=== PATIENT | female | born 1945 | race Caucasian/White ===

== ENCOUNTER 2019-01-03 13:52 | Emergency (ER) | payer MEDICARE, OTHER ==
[~2019-01-03] VITALS: Ht 172.7 cm; Wt 90.0 kg
[2019-01-03] MEDS ORDERED: PROAIR HFA108 MCG/AC PO (15:15)
[2019-01-03] MEDS ORDERED: PREDNISONE50 MG PO (15:15)
[2019-01-03] MEDS ORDERED: DOXYCYC MONO100 M2 PO (15:15)
[2019-01-03] MEDS ORDERED: CHERATUSSIN PO (15:16)
[2019-01-03 15:23] VITALS: BP 180/92
== END 2019-01-03 15:23 | disposition home or self-care (01) ==
LOC: ED 13:52
DX: J40 Bronchitis, not specified as acute or chronic (principal); E11.9 Type 2 diabetes mellitus without complications; I10 Essential (primary) hypertension; K21.9 Gastro-esophageal reflux disease without esophagitis; G47.30 Sleep apnea, unspecified

== ENCOUNTER 2019-08-01 20:47 | Observation (INO) | payer MEDICARE, OTHER ==
[~2019-08-01] VITALS: Ht 172.7 cm; Wt 93.6 kg
[~2019-08-01 20:47] MED LIST: CHERATUSSIN PO; DOXYCYC MONO100 M2 PO; PREDNISONE50 MG PO; PROAIR HFA108 MCG/AC PO
[2019-08-01 21:11] LABS: HEMATOCRIT 41.7 % (37.0-47.0); HEMOGLOBIN 13.7 g/dl (12.0-16.0); IMMATURE GRANULOCYTES 0.4 % (0.0-5.0); MEAN CELL VOLUME 90.1 fL CALC (80.0-100.0); MEAN CORPUSCULAR HGB 29.6 pG CALC (26.0-32.0); MEAN CORPUSCULAR HGB CONC 32.9 g/L CALC (32.0-36.0); NEUT# 4.16 thou/uL (2.00-7.15); RED BLOOD COUNT 4.63 mill/uL (4.20-5.60); RED CELL DISTRI WIDTH 12.9 % (11.5-15.5)
[2019-08-01] MEDS ORDERED: TOPROL XL25 M1 PO (21:11)
[2019-08-01] MEDS ORDERED: METFORMIN500 MG PO (21:12)
[2019-08-01] MEDS ORDERED: MYRBETRIQ25 MG PO (21:13)
[2019-08-01] MEDS ORDERED: LOVASTATIN40 M1 PO (21:13)
[2019-08-01] MEDS ORDERED: NASONEX50 MCG/ACT IN (21:14)
[2019-08-01 21:35] LABS: ALBUMIN 4.2 g/dL (3.2-5.0); ALKALINE PHOSPHATASE 129 u/l (38-126); ANION GAP 13 (6-22 (CALC)); BILIRUBIN, TOTAL 0.9 mg/dL (0.0-1.4); BUN 18 mg/dL (8-23); BUN/CREATININE RATIO 29 (12-20 (CALC)); CARBON DIOXIDE 27 mmol/l (22-30); CHLORIDE 101 mmol/l (95-108); CREATININE 0.6 mg/dL (0.5-1.0); GFR > 60 ML/MIN (>=60 (CALC)); GFR FOR AFR.AMER. > 60 ML/MIN (>=60 (CALC)); POTASSIUM 3.9 mmol/l (3.5-5.1); SGOT/AST 62 u/l (9-36); SODIUM 137 mmol/l (137-146); TOTAL PROTEIN 7.2 g/dL (6.3-8.2)
[2019-08-01 21:45] LABS: MYOGLOBIN 19 ng/mL (0 - 62)
[2019-08-02] VITALS (8 sets, daily range): BP systolic 100–149; BP diastolic 58–68
[2019-08-02 00:11] LABS: URINE BILIRUBIN - DIPSTICK NEGATIVE (NEGATIVE); URINE BLOOD DIPSTICK NEGATIVE (NEGATIVE); URINE COLOR YELLOW; URINE GLUCOSE - DIPSTICK >=1000 mg/dL (NEGATIVE); URINE KETONE NEGATIVE (NEGATIVE); URINE LEUK ESTERASE NEGATIVE (NEGATIVE); URINE NITRITE - DIPSTICK NEGATIVE (Negative); URINE PROTEIN - DIPSTICK NEGATIVE (NEG-TRACE); URINE UROBILINOGEN - DIPSTICK 0.2 E.U./dL (0.2)
[2019-08-03] VITALS (8 sets, daily range): BP systolic 130–168; BP diastolic 73–92
[2019-08-03 04:33] LABS: HEMATOCRIT 41.3 % (37.0-47.0); HEMOGLOBIN 13.5 g/dl (12.0-16.0); IMMATURE GRANULOCYTES 0.5 % (0.0-5.0); MEAN CORPUSCULAR HGB 30.1 pG CALC (26.0-32.0); MEAN CORPUSCULAR HGB CONC 32.7 g/L CALC (32.0-36.0); NEUT# 3.29 thou/uL (2.00-7.15); RED BLOOD COUNT 4.49 mill/uL (4.20-5.60); RED CELL DISTRI WIDTH 13.1 % (11.5-15.5)
[2019-08-03 04:58] LABS: ANION GAP 8 (6-22 (CALC)); BUN 14 mg/dL (8-23); BUN/CREATININE RATIO 23 (12-20 (CALC)); CALCULATED LDLCHOLESTEROL 122 mg/dL (62-129 (CALC)); CARBON DIOXIDE 27 mmol/l (22-30); CHLORIDE 107 mmol/l (95-108); CHOLESTEROL HDL RATIO 4.8 (<4.4 (CALC)); CREATININE 0.6 mg/dL (0.5-1.0); GFR > 60 ML/MIN (>=60 (CALC)); GFR FOR AFR.AMER. > 60 ML/MIN (>=60 (CALC)); HDL CHOLESTEROL 44 mg/dL (>=40); POTASSIUM 4.1 mmol/l (3.5-5.1); SODIUM 139 mmol/l (137-146); TOTAL CHOLESTEROL 211 mg/dl (0-199); TOTAL TRIGLYCERIDES 225 mg/dl (30-149); VLDL CHOLESTROL 45 mg/dl (0-48 (CALC))
[2019-08-03] MEDS ORDERED: ADLT ASA LOW81 MG PO (13:57)
[2019-08-03] MEDS ORDERED: GLUCOPHAGE500 MG PO (13:58)
[2019-08-03] MEDS ORDERED: ATORVASTATIN CA10 MG PO (13:59)
[2019-08-03] MEDS ORDERED: VENTOLIN HFA IN (14:03)
== END 2019-08-03 16:50 | disposition home or self-care (01) ==
LOC: ED 20:47 → ED-I 23:30 → ED 23:31 → MS2 23:31
PROVIDERS: Family Medicine; Nurse Practitioner Family; ADMIT Internal Medicine; ATTEND Internal Medicine
DX: H81.10 Benign paroxysmal vertigo, unspecified ear (principal); E11.9 Type 2 diabetes mellitus without complications; I10 Essential (primary) hypertension; E78.2 Mixed hyperlipidemia; K21.9 Gastro-esophageal reflux disease without esophagitis; G47.30 Sleep apnea, unspecified; Z79.84 Long term (current) use of oral hypoglycemic drugs
CPT/HCPCS: J1650; Q9967

== ENCOUNTER 2020-12-25 07:26 | Emergency (ER) | payer MEDICARE, OTHER ==
[~2020-12-25] VITALS: Ht 170.2 cm; Wt 100.0 kg
[~2020-12-25 07:26] MED LIST changes: +ADLT ASA LOW81 MG PO; +ATORVASTATIN CA10 MG PO; +GLUCOPHAGE500 MG PO; +LOVASTATIN40 M1 PO; +METFORMIN500 MG PO; +MYRBETRIQ25 MG PO; +NASONEX50 MCG/ACT IN; +TOPROL XL25 M1 PO; +VENTOLIN HFA IN
[2020-12-25 08:16] LABS: HEMATOCRIT 39.9 % (37.0-47.0); HEMOGLOBIN 13.1 g/dl (12.0-16.0); IMMATURE GRANULOCYTES 0.7 % (0.0-5.0); MEAN CELL VOLUME 91.1 fL CALC (80.0-100.0); MEAN CORPUSCULAR HGB 29.9 pG CALC (26.0-32.0); MEAN CORPUSCULAR HGB CONC 32.8 g/dL CAL (32.0-36.0); NEUT# 3.3 thou/uL (2.00-7.15); RED BLOOD COUNT 4.38 mill/uL (4.20-5.60); RED CELL DISTRI WIDTH 12.8 % (11.5-15.5)
[2020-12-25 08:26] LABS: ALKALINE PHOSPHATASE 99 u/l (38-126); ANION GAP 12 (6-22 (CALC)); BILIRUBIN, TOTAL 0.9 mg/dL (0.0-1.4); BUN 16 mg/dL (8-23); BUN/CREATININE RATIO 27 (12-20 (CALC)); CARBON DIOXIDE 25 mmol/l (22-30); CHLORIDE 102 mmol/l (95-108); CREATININE 0.6 mg/dL (0.5-1.0); GFR > 60 ML/MIN (>=60 (CALC)); GFR FOR AFR.AMER. > 60 ML/MIN (>=60 (CALC)); LIPASE 40 u/l (23-300); POTASSIUM 3.9 mmol/l (3.5-5.1); SGOT/AST 46 u/l (9-36); SODIUM 135 mmol/l (137-146); TOTAL PROTEIN 7.3 g/dL (6.3-8.2)
[2020-12-25 09:12] LABS: URINE BILIRUBIN - DIPSTICK NEGATIVE (NEGATIVE); URINE BLOOD DIPSTICK NEGATIVE (NEGATIVE); URINE COLOR YELLOW; URINE GLUCOSE - DIPSTICK >=1000 mg/dL (NEGATIVE); URINE KETONE NEGATIVE (NEGATIVE); URINE LEUK ESTERASE NEGATIVE (NEGATIVE); URINE NITRITE - DIPSTICK NEGATIVE (Negative); URINE PH 6.5 (4.5-8.0); URINE PROTEIN - DIPSTICK NEGATIVE (NEG-TRACE); URINE UROBILINOGEN - DIPSTICK 0.2 E.U./dL (0.2)
[2020-12-25 10:54] VITALS: BP 164/72
== END 2020-12-25 11:08 | disposition home or self-care (01) ==
LOC: ED 07:26
PROVIDERS: Student in an Organized Health Care Education/Training Program
DX: R10.9 Unspecified abdominal pain (principal); E11.65 Type 2 diabetes mellitus with hyperglycemia; I10 Essential (primary) hypertension; K21.9 Gastro-esophageal reflux disease without esophagitis; K76.0 Fatty (change of) liver, not elsewhere classified; Z87.442 Personal history of urinary calculi; Z79.84 Long term (current) use of oral hypoglycemic drugs
CPT/HCPCS: Q9967

== ENCOUNTER 2021-08-11 08:09 | Inpatient (IN) | payer MEDICARE, OTHER ==
[~2021-08-11] VITALS: Ht 170.2 cm; Wt 119.0 kg
--- NOTE | 2021-08-11 | NUR ---
PT REMAINS RESTING IN BED WITH HER EYES CLOSED. NO COMPLAINTS VOICED. BREATHING EVEN AND ULABORED. VS WNL. SAFETY PRECAUTIONS REMAIN IN PLACE. WILL MONITOR
--- NOTE | 2021-08-11 08:16 | NUR ---
PATIENT IN ROOM VIA EMS @ THIS TIME
[2021-08-11 08:52] LABS: HEMATOCRIT 37.1 % (37.0-47.0); HEMOGLOBIN 12.4 g/dl (12.0-16.0); MEAN CELL VOLUME 91.8 fL CALC (80.0-100.0); MEAN CORPUSCULAR HGB 30.7 pG CALC (26.0-32.0); MEAN CORPUSCULAR HGB CONC 33.4 g/dL CAL (32.0-36.0); NEUT# 2.43 thou/uL (2.00-7.15); RED BLOOD COUNT 4.04 mill/uL (4.20-5.60); RED CELL DISTRI WIDTH 12.9 % (11.5-15.5)
[2021-08-11 09:16] LABS: ALBUMIN 3.7 g/dL (3.2-5.0); ALKALINE PHOSPHATASE 82 u/l (38-126); ANION GAP 14 (6-22 (CALC)); BILIRUBIN, TOTAL 1.1 mg/dL (0.0-1.4); BUN 15 mg/dL (8-23); BUN/CREATININE RATIO 23 (12-20 (CALC)); C-REACTIVE PROTEIN 5.9 mg/dL (0-0.9); CARBON DIOXIDE 25 mmol/l (22-30); CHLORIDE 99 mmol/l (95-108); CREATININE 0.7 mg/dL (0.5-1.0); GFR > 60 ML/MIN (>=60 (CALC)); GFR FOR AFR.AMER. > 60 ML/MIN (>=60 (CALC)); POTASSIUM 3.8 mmol/l (3.5-5.1); SGOT/AST 71 u/l (9-36); SODIUM 135 mmol/l (137-146); TOTAL PROTEIN 6.7 g/dL (6.3-8.2)
[2021-08-11 12:04] LABS: URINE BILIRUBIN - DIPSTICK NEGATIVE (NEGATIVE); URINE BLOOD DIPSTICK TRACE-LYSED (NEGATIVE); URINE COLOR YELLOW; URINE GLUCOSE - DIPSTICK >=1000 mg/dL (NEGATIVE); URINE KETONE TRACE mg/dL (NEGATIVE); URINE LEUK ESTERASE NEGATIVE (NEGATIVE); URINE PROTEIN - DIPSTICK NEGATIVE (NEG-TRACE); URINE UROBILINOGEN - DIPSTICK 0.2 E.U./dL (0.2)
[2021-08-11 12:07] LABS: URINE NITRITE - DIPSTICK NEGATIVE (Negative)
--- NOTE | 2021-08-11 13:30 | NUR ---
PT UP TO FLOOR AND ORIENTEDF TO ROOM. PT HAS NO COMPLAINTS AT THIS TIME. GLUCOSE 398, COVERED 8 UNITS OF INSULIN. CURRENTLY HAS REMDESIVIR RUNNING FROM ER. REPORT RECEIVED FROM FAN IN ER. ASSESSMENT PERFORMED. WILL CONTINUE TO MONITOR.
--- NOTE | 2021-08-11 13:48 | NUR ---
DR MARY BEDSIDE
--- NOTE | 2021-08-11 13:49 | NUR ---
ATTEMPT TO CALL REPORT TO MED/SURG
[2021-08-11 14:30] VITALS: BP 137/82
--- NOTE | 2021-08-11 14:41 | NUR ---
REPORT GIVEN TO MED/SURG NURSE
[2021-08-11 19:00] VITALS: BP 132/67
--- NOTE | 2021-08-11 19:00 | NUR ---
REPORT RECEVIED FROM DAY SHIFT NURSE, [facility].
--- NOTE | 2021-08-11 20:00 | NUR ---
PT RESTING QUIETLY IN BED WITH HER EYES CLOSED. NO COMPLAINTS VOICED AT THIS TIME. PT ACCU CHECK IS 322, COVERED WITH SLIDING SCALE INSULIN PER ORDER. BREATHING IS EVEN AND UNLABORED, OXYGEN SATURATION ARE WNL FOR PT AT THIS TIME. PT IS ON TELEMETRY RUNNING SR @ 76. SAFETY PRECAUTIONS REAMIN IN PLACE. PT WAS SLIGHTLY DISTRAUGHT AT TOP OF SHIFT D/T HER BEING DOWNSTAIRS IN THE ER BEING TREATED. REASSURSED PT THAT THIS NURSE WOULD KEEP HER POSTED THROUGHOUT THE SHIFT ON HER HUSBANDS STATUS. PT RELAXED AFTER BEING REASSURED. WILL MONITOR
[2021-08-12] VITALS: BP 133/61
--- NOTE | 2021-08-12 | NUR ---
PT CONTINUES TO REST QUIETLY. NO COMPLAINTS VOICED. VSS. BREATHING EVEN AND UNLABORED. NO COUGH NOTED RECENTLY. PT CONTINUES ON OXYGEN PER ORDER. PT REMAINS ON TELE SR-65. DENIES PAIN AT THIS TIME. SAFETY PRECAUTIONS REMAIN IN PLACE. WILL MONITOR
[2021-08-12 04:00] VITALS: BP 131/61
--- NOTE | 2021-08-12 04:00 | NUR ---
BREATHING EVEN AND UNLABORED. NO COMPLAINTS VOICED. RESTING QUIETLY WITH EYES CLOSED. NO S/S OF DISTRESS NOTED. O2 REMAINS AT 2L, TOLERATING WELL. VSS. SAFETY PRECAUTIONS REMAIN IN PLACE. WILL MONITOR
[2021-08-12 06:09] LABS: ALBUMIN 3.5 g/dL (3.2-5.0); ALKALINE PHOSPHATASE 74 u/l (38-126); ANION GAP 13 (6-22 (CALC)); BILIRUBIN, TOTAL 0.7 mg/dL (0.0-1.4); BUN 19 mg/dL (8-23); BUN/CREATININE RATIO 30 (12-20 (CALC)); C-REACTIVE PROTEIN 6.5 mg/dL (0-0.9); CARBON DIOXIDE 24 mmol/l (22-30); CHLORIDE 105 mmol/l (95-108); CREATININE 0.6 mg/dL (0.5-1.0); GFR > 60 ML/MIN (>=60 (CALC)); GFR FOR AFR.AMER. > 60 ML/MIN (>=60 (CALC)); POTASSIUM 3.9 mmol/l (3.5-5.1); SGOT/AST 46 u/l (9-36); SODIUM 139 mmol/l (137-146); TOTAL PROTEIN 6.4 g/dL (6.3-8.2)
[2021-08-12 06:20] LABS: HEMATOCRIT 36.3 % (37.0-47.0); IMMATURE GRANULOCYTES 1.3 % (0.0-5.0); MEAN CELL VOLUME 93.3 fL CALC (80.0-100.0); MEAN CORPUSCULAR HGB 30.8 pG CALC (26.0-32.0); MEAN CORPUSCULAR HGB CONC 33.1 g/dL CAL (32.0-36.0); NEUT# 1.66 thou/uL (2.00-7.15); RED BLOOD COUNT 3.89 mill/uL (4.20-5.60); RED CELL DISTRI WIDTH 12.8 % (11.5-15.5)
[2021-08-12 07:00] VITALS: BP 130/80
--- NOTE | 2021-08-12 07:00 | NUR ---
PATIENT LAYING IN BED WITH O2 ON AT 2L N/C AND SPO2 IS CURRENTLY 94%. PATIENT GIVEN 5 UNITS OF HUMALOG FOR A ACCU CHECK OF 264. PATIENT DENIES ANY SHORTNESS OF BREATH AND LUNG AMATO ARE CLEAR IN UPPER AMATO AND DIMINISHED IN LOWER AMATO. PATIENT DENEIS ANY PAIN CURRENTLY AND IS ALERT AND ORIENTED X 3. PATIENT HAS A TELE MONITOR IN PLACE AND BEING MONITORED BY ED. SIDERAILS ARE UP CALL LIGHT WITHIN REACH.
[2021-08-12 10:30] VITALS: BP 121/58
--- NOTE | 2021-08-12 11:46 | NUR ---
PATIENT GOT UP TO BATHROOM UNASSISTED AND TOOK O2 OFF AND SPO2 DESTATED TO 82% PATIENT UP IN CHAIR AND O2 REPLACED ON 3L AND SPO2 WENT TO 89% THEN O2 BUMPED UP TO 4L AND SPO2 IS 94% SUSTAINING AT THIS TIME. PATIENT ADVISED NOT TO GET UP WITHOUT HELP AND DO NOT TAKE OXYGEN OFF. PATIENT ALSO GIVEN INCENTIVE SPIROMETER AND EDUCATED ON PROPER USE AND PATIENT VERBARLIZES UNDERSTANDING. CALL LIGHT IS WITHIN REACH.
[2021-08-12 15:00] VITALS: BP 132/82
--- NOTE | 2021-08-12 16:18 | NUR ---
PATIENT REMAINS UP IN CHAIR AT THIS TIME. PATEINT DENIES ANY PAIN AND OR NEEDS AT THIS TIME. PATIENT REMAINS ON 4L N/C AT THIS TIME. TELE MONITOR REMAINS ON AND BEING MONITORED BY ED. CALL LIGHT IS WITHIN REACH.
[2021-08-12 19:40] VITALS: BP 131/88
--- NOTE | 2021-08-12 19:40 | NUR ---
ASSESSMENT COMPLETE AT THIS TIME. ALERT AND ORIENTED. ABLE TO MAKE NEEDS KNOWN. DENIES ANY PAIN OR DISCOMFORT. CALL LIGHT AND BELONGINGS WITHIN REACH.
--- NOTE | 2021-08-12 22:33 | NUR ---
SITTING UP IN BED, WATCHING TV. NO COMPLAINTS VOICED.
[2021-08-13] VITALS: BP 148/66
--- NOTE | 2021-08-13 01:57 | NUR ---
GIVEN PRN COUGH SYRUP PER REQUEST. PATIENT TOLERATED WELL. OBSERVED PATIENT SITTING ON SIDE OF BED USING INCENTIVE SPIROMETER.
--- NOTE | 2021-08-13 02:05 | NUR ---
PROVIDED PATIENT WITH A SNACK PER REQUEST.
[2021-08-13 04:00] VITALS: BP 138/60
[2021-08-13 05:39] LABS: BASO% 0 % (0-3); EOS% 0 % (0-8); HEMATOCRIT 34.4 % (37.0-47.0); HEMOGLOBIN 11.3 g/dl (12.0-16.0); LYMPH% 29 % (15-41); MEAN CELL VOLUME 93.2 fL CALC (80.0-100.0); MEAN CORPUSCULAR HGB 30.6 pG CALC (26.0-32.0); MEAN CORPUSCULAR HGB CONC 32.8 g/dL CAL (32.0-36.0); MONO% 7 % (2-13); NEUT# 2.62 thou/uL (2.00-7.15); NEUT% 63 % (42-76); PLATELET COUNT 160 thou/uL (130-400); RED BLOOD COUNT 3.69 mill/uL (4.20-5.60); RED CELL DISTRI WIDTH 12.7 % (11.5-15.5)
[2021-08-13 05:53] LABS: ALBUMIN 3.2 g/dL (3.2-5.0); ALKALINE PHOSPHATASE 75 u/l (38-126); ANION GAP 13 (6-22 (CALC)); BILIRUBIN, TOTAL 0.9 mg/dL (0.0-1.4); BUN 24 mg/dL (8-23); BUN/CREATININE RATIO 42 (12-20 (CALC)); C-REACTIVE PROTEIN 3.8 mg/dL (0-0.9); CARBON DIOXIDE 24 mmol/l (22-30); CHLORIDE 104 mmol/l (95-108); CREATININE 0.6 mg/dL (0.5-1.0); GFR > 60 ML/MIN (>=60 (CALC)); GFR FOR AFR.AMER. > 60 ML/MIN (>=60 (CALC)); POTASSIUM 4.1 mmol/l (3.5-5.1); SGOT/AST 43 u/l (9-36); SODIUM 137 mmol/l (137-146); TOTAL PROTEIN 6.2 g/dL (6.3-8.2)
--- NOTE | 2021-08-13 06:00 | NUR ---
RESTING IN BED ON RIGHT SIDE. NO SIGNS OF PAIN OR DISTRESS NOTED. PATIENT DOES PRONE AT TIMES WITHOUT DIFFICULTY.
[2021-08-13 07:30] VITALS: BP 128/72
--- NOTE | 2021-08-13 07:30 | NUR ---
PATIENT RESTING IN BED AT THIS TIME. PATIENT DENIES ANY PAIN OR SHORTNESS OF BREATH. PT SITTER DONE SEE INTERVENTIONS. LUNG AMATO ARE CLEAR IN UPPER AMATO AND DIMINISHED IN LOWER AMATO. PATIENT AT THIS TIME PRESENTS WITHOUT COUGH. TELE MONITOR ON PATIENT AND BEING MONITORED BY ED. SIDERAILS ARE UP CALL LIGHT WITHIN REACH.
[2021-08-13 10:20] VITALS: BP 136/64
[2021-08-13] MEDS ORDERED: SERTRALINE HCL100 MG PO (10:26)
--- NOTE | 2021-08-13 11:00 | NUR ---
PATIENT GIVEN 5 UNITS OF SLIDING SCALE HUMALOG FOR BLOOD GLUCOSE ACCU CHECK OF 282. PATIENT ALSO ASSISTED TO CHAIR AT THIS TIME. 02 REMAINS ON AT 4L N/C AT THIS TIME. CALL LIGHT AND PERSONAL ITEMS WITHIN REACH.
[2021-08-13 15:40] VITALS: BP 164/72
--- NOTE | 2021-08-13 16:10 | NUR ---
PATIENT SITTING UP IN CHAIR AT THIS TIME. PATIENT DENIES ANY PAIN AND OR NEEDS CURRENTLY. PATIENT ON 4L OF O2 N/C AT THIS TIME. CALL LIGHT IS WITH IN REACH TELE MONITOR ON AND BEING MONITORED BY ED.
[2021-08-13 20:06] VITALS: BP 168/71
--- NOTE | 2021-08-13 20:15 | NUR ---
PATIENT SITTING IN RECLINER. NO COMPLAINTS VOICED. CALL LIGHT WITHIN REACH. ASSESSMENT COMPLETE. IV SITE TO THE RIGHT AC REMAINS PATENT. ENCOURAGED TO UTILIZE CALL LIGHT FOR ASSISTANCE.
[2021-08-14 00:40] VITALS: BP 168/72
--- NOTE | 2021-08-14 00:40 | NUR ---
RESTING IN BED TOWARDS RIGHT SIDE. NO SIGNS OF DISTRESS NOTED. DENIES PAIN.
--- NOTE | 2021-08-14 04:20 | NUR ---
RECEIVED PRN COUGH SYRUP PER REQUEST. PATIENT TOLERATED WELL.
--- NOTE | 2021-08-14 05:02 | NUR ---
RESPIRATORY CAME TO SEE PATIENT FOR OXYGEN SATURATIONS 84-87% ON 4L NC. RESPIRATORY SWITCHED PATIENT TO 7L HIGHFLOW NC. OXYGEN SATURATION RECHECKED AND SUSTAINING AT 92% CURRENTLY.
[2021-08-14 05:30] VITALS: BP 156/64
[2021-08-14 05:31] LABS: HEMOGLOBIN 11.5 g/dl (12.0-16.0); IMMATURE GRANULOCYTES 2.4 % (0.0-5.0); MEAN CELL VOLUME 94.6 fL CALC (80.0-100.0); MEAN CORPUSCULAR HGB 31.1 pG CALC (26.0-32.0); MEAN CORPUSCULAR HGB CONC 32.9 g/dL CAL (32.0-36.0); NEUT# 2.61 thou/uL (2.00-7.15); RED BLOOD COUNT 3.7 mill/uL (4.20-5.60); RED CELL DISTRI WIDTH 12.6 % (11.5-15.5)
[2021-08-14 05:46] LABS: ALBUMIN 3.3 g/dL (3.2-5.0); ALKALINE PHOSPHATASE 80 u/l (38-126); ANION GAP 14 (6-22 (CALC)); BILIRUBIN, TOTAL 0.8 mg/dL (0.0-1.4); BUN 22 mg/dL (8-23); BUN/CREATININE RATIO 36 (12-20 (CALC)); CARBON DIOXIDE 26 mmol/l (22-30); CHLORIDE 103 mmol/l (95-108); CREATININE 0.6 mg/dL (0.5-1.0); GFR > 60 ML/MIN (>=60 (CALC)); GFR FOR AFR.AMER. > 60 ML/MIN (>=60 (CALC)); POTASSIUM 3.9 mmol/l (3.5-5.1); SGOT/AST 42 u/l (9-36); SODIUM 139 mmol/l (137-146); TOTAL PROTEIN 6.4 g/dL (6.3-8.2)
--- NOTE | 2021-08-14 07:00 | NUR ---
RECIEVED REPORT FROM CURTIS REDMOND
[2021-08-14 07:59] VITALS: BP 173/80
--- NOTE | 2021-08-14 07:59 | NUR ---
PT AMBULATING TO CHAIR FROM BSC UPON ENTERING ROOM. PT IS A/O X3. ASSESSMENT AND VITALS COMPLETED. BP 173/80, HR 77, O2 90% ON 10L HIGH FLOW NC. RESPIRATIONS ARE SHALLOW. LUNG SOUNDS ARE DIMINISHED.NONPRODUCTIVE COUGH NOTED. ROBITUSSIN ADMINISTERED. BOWEL SOUNDS ARE ACTIVE. BM NOTED. PULSES STRONG. #20G RAC FLUSHED, SITE APEARS HEALTHY AND PATENT. SKIN INTACT. PT DENIES OF ANY PAINS OR DISCOMFORTS AT THIS TIME.ACCUCHECK REUSLTING IN 206, COVERAGE ADMINISTERED. ALL SAFETY PRECAUTIONS ARE IN PLACE WITH CALL LIGHT IN REACH. AIR/CONTACT PRECAUTIONS. WILL CONTINUE TO MONITOR.
--- NOTE | 2021-08-14 10:01 | NUR ---
DR MOSQUEDA AND HERBIE,ANRP AT BEDSIDE
[2021-08-14 10:50] VITALS: BP 157/72
--- NOTE | 2021-08-14 11:30 | NUR ---
PT SLEEPING IN CHAIR UPON ENTERING ROOM. PT AWAKENS TO SPEECH. RESPIRATIONS ARE EVEN AND UNLABORED ON 8L HIGH FLOW NC 94%. O2 DECREASED TO 6L HIGH FLOW NC, 90%. RESPIRATIONS REMAINS EVEN AND UNLABORED WITH NO DISTRESS NOTED. TELE MONITORING IN PLACE. PT DENIES OF ANY ADDITIONAL NEEDS AT THIS TIME. ALL SAFETY PRECAUTIONS ARE IN PLACE WITH CALL LIGHT IN REACH. WILL CONTINUE TO MONITOR.
--- NOTE | 2021-08-14 13:58 | NUR ---
PT RESTING IN RECYLINER. RESPIRATIONS ARE EVEN AND UNLABORED. 96% ON 6L HIGH FLOW. O2 DECREASED TO 4L, 94%. REPSIRATIONS REMAINS EVEN AND UNLABORED. WILL CONTINUE TO MONITOR.
[2021-08-14 14:50] VITALS: BP 133/61
--- NOTE | 2021-08-14 15:53 | NUR ---
O2 96% ON 4L NC. O2 DECREAED TO 2L NC. RESPIRATIONS ARE EVEN AND UNLABORED WITH NO DISTRESS NOTED. TELE MONITORING IN PLACE. PT DENIES OF ANY PAINS OR DISCOMFORTS AT THIS TIME. ALL SAFETY PRECAUTIONS ARE IN PLACE WITH CALL LIGHT IN REACH. WILL CONTINUE TO MONITOR.
--- NOTE | 2021-08-14 16:37 | NUR ---
ACCUCHECK RESULTING IN CRITICALLY HIGH, GLUCOSE LAB COMPLETED, SENT TO LAB.
--- NOTE | 2021-08-14 17:22 | NUR ---
LAB GLUCOSE RESULTING IN 402. SC AND IV INSULING ADMINISTERED PER ORDER. PT ENCOUARGED TO EAT DINNER. PT VERBALIZED UNDERSTANDING.
--- NOTE | 2021-08-14 17:53 | NUR ---
NEW #22G RAC STARTED, SITE REMAINS HEALTHY AND PATENT. #22G LFA REMOVED WITH CATH STILL INTACT. PT TOLERATED WELL. O2 REMAINS 92-93% ON 4L NC. RESPIRATIONS EVEN AND UNLABORED WITH NO DISTRESS.
--- NOTE | 2021-08-14 17:58 | NUR ---
O2 SAT 96% ON 2L NC. O2 REMOVED.2L NC AT BEDSIDE PRN. REPSIRATIONS REMAINS EVEN AND UNLABORED. PT INSTRUCTED TO REAPPLY IF NEEDED. PT VERBLAIZED UNDERSTANDING. WILL CONTINUE TO MONITOR
[2021-08-14 19:00] VITALS: BP 93/58
--- NOTE | 2021-08-14 22:28 | NUR ---
PHYSICAL ASSESMENT COMPLETE. PT CURRENTLY DENIES PAIN OR DISCOMFORT. SCHEDULED MEDICATIONS AND PRN MEDICATION ADMINISTERED, SEE E-MAR. PT DENIES ANY NEEDS AT THIS TIME. PLAN OF CARE REVIEWED, PT DENIES QUESTIONS, VERBALIZES UNDERSTANDING. ITEMS WITHIN REACH, BED LOCKED IN LOW POSITION W/ BEDRAILS UP X2. CALL GARCIA WITHIN REACH, AGREES TO CALL PRN.
--- NOTE | 2021-08-14 23:04 | NUR ---
PT C/O OF SOB. ADMININISTERED ROBITUSSIN FOR PERSISTENT COUGH. WILL CONTINUE TO MONITOR.
[2021-08-15] VITALS (7 sets, daily range): BP systolic 139–173; BP diastolic 58–75
--- NOTE | 2021-08-15 | NUR ---
PT LAYING IN BED WITH EYES CLOSED, APPEARS TO BE SLEEPING, APPEARS COMFORTABLE AND IN NO DISTRESS. RESPIRATIONS REGULAR AND UNLABORED. ITEMS REMAIN WITHIN REACH, CALL GARCIA REMAINS WITHIN REACH. BED REMAINS LOCKED AND IN LOW POSITION WITH BEDRAILS UP X2. WILL CONTINUE TO MONITOR.
--- NOTE | 2021-08-15 04:00 | NUR ---
PT RESTING IN BED, NO SIGNS OF DISTRESS NOTED, RESP EVEN AND UNLABORED. PT VOICES NO NEEDS OR COMPLAINTS AT THIS TIME. CALL LIGHT IN REACH, CONTINUE TO MONITOR.
[2021-08-15 05:55] LABS: HEMATOCRIT 36.2 % (37.0-47.0); HEMOGLOBIN 11.9 g/dl (12.0-16.0); MEAN CELL VOLUME 93.8 fL CALC (80.0-100.0); MEAN CORPUSCULAR HGB 30.8 pG CALC (26.0-32.0); MEAN CORPUSCULAR HGB CONC 32.9 g/dL CAL (32.0-36.0); NEUT# 4.4 thou/uL (2.00-7.15); RED BLOOD COUNT 3.86 mill/uL (4.20-5.60); RED CELL DISTRI WIDTH 12.5 % (11.5-15.5)
[2021-08-15 06:13] LABS: ALBUMIN 3.1 g/dL (3.2-5.0); ALKALINE PHOSPHATASE 79 u/l (38-126); ANION GAP 10 (6-22 (CALC)); BILIRUBIN, TOTAL 0.9 mg/dL (0.0-1.4); BUN 24 mg/dL (8-23); BUN/CREATININE RATIO 32 (12-20 (CALC)); C-REACTIVE PROTEIN 3.1 mg/dL (0-0.9); CARBON DIOXIDE 28 mmol/l (22-30); CHLORIDE 103 mmol/l (95-108); CREATININE 0.8 mg/dL (0.5-1.0); GFR > 60 ML/MIN (>=60 (CALC)); GFR FOR AFR.AMER. > 60 ML/MIN (>=60 (CALC)); POTASSIUM 3.9 mmol/l (3.5-5.1); SGOT/AST 44 u/l (9-36); SODIUM 137 mmol/l (137-146)
--- NOTE | 2021-08-15 07:00 | NUR ---
RECIEVED REPORT FROM CURTIS CHAPMAN
--- NOTE | 2021-08-15 08:18 | NUR ---
PT RESTING IN SEMI FOWLERS POSITION. PT IS A/O X3. ASSESSMENT AND VITALS OBTAINED. BP 173/70, HR 103, O2 90% ON 8L HIGH FLOW NC. RESPIRATIONS ARE SHALLOW. LUNG SOUNDS ARE CLEAR. NONPRODUCTIVE COUGH NOTED. BOWEL SOUNDS ARE ACTIVE.#20G RAC FLUSHED, SITE APPEARS HEALTHY AND PATENT. SKIN INTACT. PULSES STRONG. PT DENIES OF ANY PAINS OR DISCOMFORTS AT THIS TIME. ALL SFAETY PRECAUTIONS ARE IN PLACE WITH CALL LIGHT IN REACH.PT EDUCATED ON I.S/CHAIR/PRONING. AIR/CONTACT PRECAUTIONS. WILL CONTINUE TO MONITOR.
--- NOTE | 2021-08-15 10:08 | NUR ---
NEW #22G LAC STARTED, SITE APPEARS HEALTHY AND PATENT. #20G RAC LEAKING. REMOVED WITH CATH STILL INTACT. PT TOLERTED WELL.
--- NOTE | 2021-08-15 11:23 | NUR ---
DR GUTIERREZ AND HERBIE,ANNEYDA AT BEDSIDE
--- NOTE | 2021-08-15 11:34 | NUR ---
DR GUTIERREZ AND HERBIE,ANNEYDA AT BEDSIDE
--- NOTE | 2021-08-15 12:07 | NUR ---
PT RESTING IN SEMI FOWLERS POSITION. RESPIRATIONS ARE SHALLOW, 90% ON 6L HIGH FLOW NC. #22G LAC REMOAINS IN PLACE. TELE MONITORING IN PLACE. ACCUCHECK REUSLTING IN 239, COVAGE ADMINISTERED. PT DENIES OF ANY PAINS. ALL SAFETY PRECAUTIONS ARE IN PLACE WITH CALL LIGHT IN REACH. WILL CONTINUE TO MONITOR
--- NOTE | 2021-08-15 16:28 | NUR ---
PT RESTING IN SEMI FOWLERS POSITION. RESPIRATIONS ARE EVEN AND UNLABORED WITH NO DISTRESSS NOTED ON 7L HIGH FLOW NC. #22G LAC REMAINS IN PLACE. TELE MONITORING IN PLACE. PT DENIES OF ANY PAINS OR DISCOMFORTS AT THIS TIME. ALL SAFETY PRECAUTIONS ARE IN PLACE WITH CALL LIGHT IN REACH. ISOLATION PRECAUTIONS. WILL CONTINUE TO MONITOR.
--- NOTE | 2021-08-15 17:20 | NUR ---
RESPIRATIONS ARE EVEN AND UNLABORED, 93% ON 7L HIGH FLOW, NC.
[2021-08-16] VITALS: BP 145/64
[2021-08-16 04:00] VITALS: BP 181/73
[2021-08-16 06:16] LABS: HEMATOCRIT 37.4 % (37.0-47.0); HEMOGLOBIN 12.1 g/dl (12.0-16.0); IMMATURE GRANULOCYTES 2.6 % (0.0-5.0); MEAN CORPUSCULAR HGB 30.4 pG CALC (26.0-32.0); MEAN CORPUSCULAR HGB CONC 32.4 g/dL CAL (32.0-36.0); NEUT# 3.82 thou/uL (2.00-7.15); RED BLOOD COUNT 3.98 mill/uL (4.20-5.60); RED CELL DISTRI WIDTH 12.7 % (11.5-15.5)
[2021-08-16 06:24] LABS: ALBUMIN 3.1 g/dL (3.2-5.0); ALKALINE PHOSPHATASE 86 u/l (38-126); ANION GAP 12 (6-22 (CALC)); BUN 20 mg/dL (8-23); BUN/CREATININE RATIO 32 (12-20 (CALC)); CARBON DIOXIDE 27 mmol/l (22-30); CHLORIDE 102 mmol/l (95-108); CREATININE 0.6 mg/dL (0.5-1.0); GFR > 60 ML/MIN (>=60 (CALC)); GFR FOR AFR.AMER. > 60 ML/MIN (>=60 (CALC)); POTASSIUM 3.6 mmol/l (3.5-5.1); SGOT/AST 33 u/l (9-36); SODIUM 137 mmol/l (137-146); TOTAL PROTEIN 6.2 g/dL (6.3-8.2)
--- NOTE | 2021-08-16 07:00 | NUR ---
RECIEVED REPORT FROM CURTIS CHAPMAN
[2021-08-16 07:42] VITALS: BP 183/74
--- NOTE | 2021-08-16 07:42 | NUR ---
PT RESTING IN SEMI FOWLERS POSITION. PT IS A/O X3 AND [place]. RESPIRATIONS ARE SHALLOW ON 11L HIGH FLOW NC, 90%. CRACKLES PRESENT UPON ALSCULTATION OF LUNGS. NONPRODUCTIVE COUGH NOTED, ROBITUSSIN ADMINISTERED. HEART RHYTHM NORMAL WITH TELE IN PLACE. BOWEL SOUNDS ARE ACTIVE X4. LBM 08/14/21. PULSES STRONG. #22GLAC, FLUSHED, SITE APPEARS HEALTHY AND PATENT. SKIN INTACT. PT DENIES OF ANY PAINS OF DISCOMFORTS AT THIS TIME. ALL SAFETY PRECAUTIONS ARE IN PLACE WITH CALL LIGHT IN REACH. AIR/CONTACT. WILL CONTINUE TO MONITOR.
--- NOTE | 2021-08-16 09:00 | NUR ---
DR GUTIERREZ AND HERBIE,ANNEYDA AT BEDSIDE
--- NOTE | 2021-08-16 09:39 | NUR ---
PT RESTING IN SEMI FOWLERS POSITION. RESPIRATIONS REMAIN SHALOW, 93% ON 10L HIGH FLOW NC. PT DENIES OF ANY ADDITIONAL NEEDS AT THIS TIME. ALL SAFETY PRECAUTIONS ARE IN PLACE WITH CALL LIGHT IN REACH. WILL CONTINUE TO MONITOR
[2021-08-16 10:30] VITALS: BP 104/51
--- NOTE | 2021-08-16 11:24 | NUR ---
PT SLEEPING ON RIGHT SIDE.PT AWAKENS TO SPEECH. RESPIRATIONS ARE EVEN AND UNLABORED ON 10L HIGH FLOW NC, 96%. O2 DECREASED TO 8L HIGH FLOW, 94%. TELE MONITORING IN PLACE.NAME AND PHONE NUMBER OF FACILITY PT WAS DC TO YESTURDAY PRESENTED TO PT. ACCUCHECK RESULTING IN 286, COVERAGE ADMINISTERED. PT DENIES OF ANY PAINS OR DISCOMFORTS AT THIS TIME. ALL SAFETY PRECAUTIONS ARE IN PLACE WITH CALL LIGHT IN REACH. WILL CONTINUE TO MONITOR.
--- NOTE | 2021-08-16 14:15 | NUR ---
PT IS 96% ON 5 /2 OF O2
[2021-08-16 14:38] VITALS: BP 130/60
--- NOTE | 2021-08-16 16:23 | NUR ---
PT RESTING IN SEMI FOWLERS POSITION. RESPIRATIONS ARE EVEN AND UNLABORED ON 6L HIGH FLOW NC. TELE MONITORING IN PLACE. #22G LAC REMAINS IN PLACE. PT DENIES OF ANY PAINS OR DISCOMFORTS AT THIS TIME. ROBITUSSIN PREVIOUSLY ADMINISTERED. ALL SAFETY AND ISOLATION PRECAUTIONS ARE IN PLACE WITH CALL LIGHT IN REACH. WILL CONTINUE TO MONITOR
[2021-08-16 19:09] VITALS: BP 135/61
--- NOTE | 2021-08-16 21:44 | NUR ---
PT MEDICATED ORDERS PROVIDE AND ASSESSMENT COMPLETED AT THIS TIME. ICEWATER PROVIDED FRESH, PT DENIED ANY OTHER NEEDS AT THIS TIME. OXYGEN SET TO 5L HIGH FLOW NC, 02 SAT @93% CALL LIGHT W/IN REACH, PT ENCOURAGED TO CALL NEEDS ARISE.
--- NOTE | 2021-08-17 00:30 | NUR ---
PT APPEARS TO BE SLEEPING, NO SO DISTRESS. RESP EVEN AND NON-LABORED. CALL LIGHT W/IN REACH.
[2021-08-17 00:58] VITALS: BP 164/70
[2021-08-17 04:38] VITALS: BP 143/62
--- NOTE | 2021-08-17 05:04 | NUR ---
PT SLEEPING AWOKE TO MY VOICE. OXYGEN SAT @96% ON 5LNC HIGH FLOW. NO S/O DISTRESSES NOTED AT THIS TIME. PT DENIES ANY NEEDS, QUICKLY CLOSES EYES BACK TO RETURN TO SLEEP. RESP EVEN AND NON-LABORED.
[2021-08-17 05:43] LABS: HEMATOCRIT 34.5 % (37.0-47.0); HEMOGLOBIN 11.3 g/dl (12.0-16.0); IMMATURE GRANULOCYTES 2.1 % (0.0-5.0); MEAN CELL VOLUME 94.5 fL CALC (80.0-100.0); MEAN CORPUSCULAR HGB CONC 32.8 g/dL CAL (32.0-36.0); NEUT# 5.28 thou/uL (2.00-7.15); RED BLOOD COUNT 3.65 mill/uL (4.20-5.60); RED CELL DISTRI WIDTH 12.7 % (11.5-15.5)
[2021-08-17 06:13] LABS: ALKALINE PHOSPHATASE 86 u/l (38-126); ANION GAP 10 (6-22 (CALC)); BILIRUBIN, TOTAL 0.8 mg/dL (0.0-1.4); BUN 21 mg/dL (8-23); BUN/CREATININE RATIO 35 (12-20 (CALC)); C-REACTIVE PROTEIN 4.6 mg/dL (0-0.9); CARBON DIOXIDE 31 mmol/l (22-30); CHLORIDE 101 mmol/l (95-108); CREATININE 0.6 mg/dL (0.5-1.0); GFR > 60 ML/MIN (>=60 (CALC)); GFR FOR AFR.AMER. > 60 ML/MIN (>=60 (CALC)); POTASSIUM 3.7 mmol/l (3.5-5.1); SGOT/AST 36 u/l (9-36); SODIUM 138 mmol/l (137-146)
--- NOTE | 2021-08-17 07:10 | NUR ---
BEDSIDE REPORT RECEIVED FROM FREYA. KELLY MONITOR.
[2021-08-17 09:07] VITALS: BP 133/60
[2021-08-17 11:05] VITALS: BP 160/70
--- NOTE | 2021-08-17 15:00 | NUR ---
PT LYING IN BED, AWKON TO SN OPENING DOOR. MEDICATIONS ADMIN. NO COMPLAINTS/DISTRESS AT THIS TIME WILL CONTINUE TO MONITOR.
[2021-08-17 15:11] VITALS: BP 134/62
--- NOTE | 2021-08-17 15:23 | NUR ---
WALK TEST ATTEMPTED, PT SATURATION WITHOUT O2, NO ACTIVITY 86%. O2 REAPPLIED AT 8LPM, O2 RETURNED TO 93%.
[2021-08-17 19:00] VITALS: BP 122/74
--- NOTE | 2021-08-17 21:55 | NUR ---
pt medicated as orders provide and poc discussed. she reports having dropped her IS and it is no longer working. Will order another IS. pt provided snack as her sugar dropped to 75 previous morning after being high the previous night.
[2021-08-18] VITALS: BP 168/72
--- NOTE | 2021-08-18 02:30 | NUR ---
pt appears to be sleeping at this time. No s/o distress, resp even and non-labored. call light w/in reach.
--- NOTE | 2021-08-18 02:30 | NUR ---
ED CALLED TO REPORT MUSKRAT TRAPPER NOT COMING IN. LEADS HAD TO BE CHANGED AND BATTERIES, CONFIRMED WITH ED READINGS. PT APPEARS STABLE, RESP EVEN NON-LABORED, DENIES COUGH OR ANY OTHER DISTRESSES. PT IS ON 2L W/02 SATS MEASURING 92%
[2021-08-18 04:00] VITALS: BP 149/64
--- NOTE | 2021-08-18 05:46 | NUR ---
CALLED TO BEDSIDE, PT HAD A COUGHING SPELL AND WAS FEELING SOB. OXYGEN SAT LEVELS 83% OXYGEN INCREASED FOR RECOVERY AND NOW TITRATED TO 8LNC HIGH FLOW W/O2 SAT STABLE @96% PT IS IN PRONING POSITION.
[2021-08-18 05:59] LABS: HEMATOCRIT 36.5 % (37.0-47.0); HEMOGLOBIN 11.8 g/dl (12.0-16.0); IMMATURE GRANULOCYTES 2.6 % (0.0-5.0); MEAN CELL VOLUME 94.3 fL CALC (80.0-100.0); MEAN CORPUSCULAR HGB 30.5 pG CALC (26.0-32.0); MEAN CORPUSCULAR HGB CONC 32.3 g/dL CAL (32.0-36.0); NEUT# 4.12 thou/uL (2.00-7.15); RED BLOOD COUNT 3.87 mill/uL (4.20-5.60); RED CELL DISTRI WIDTH 12.9 % (11.5-15.5)
[2021-08-18 06:04] LABS: ALKALINE PHOSPHATASE 84 u/l (38-126); ANION GAP 10 (6-22 (CALC)); BILIRUBIN, TOTAL 0.9 mg/dL (0.0-1.4); BUN 19 mg/dL (8-23); BUN/CREATININE RATIO 34 (12-20 (CALC)); CARBON DIOXIDE 29 mmol/l (22-30); CHLORIDE 102 mmol/l (95-108); CREATININE 0.6 mg/dL (0.5-1.0); GFR > 60 ML/MIN (>=60 (CALC)); GFR FOR AFR.AMER. > 60 ML/MIN (>=60 (CALC)); POTASSIUM 3.8 mmol/l (3.5-5.1); SGOT/AST 43 u/l (9-36); SODIUM 138 mmol/l (137-146); TOTAL PROTEIN 6.1 g/dL (6.3-8.2)
[2021-08-18 07:45] VITALS: BP 179/72
--- NOTE | 2021-08-18 07:45 | NUR ---
BEDSIDE REPORT RECEIVED, PT LYING IN BED ASLEEP. AWOKEN TO SN ASESSMENT. PT COUGHING NON PRODUCTIVE. O2 SAT AT 93% WHILE LYING FLAT ON LEFT SIDE. PT SITTING AT BEDSIDE WITH TABLE EATING BREAKFAST. NO C/O PAIN. WILL CONTINUE TO MONITOR.
--- NOTE | 2021-08-18 11:12 | NUR ---
Patient underwent PT intervention today. Patient participated with AROM exercises for B LE in seated position: hip flexion, hip adduction, hip abduction, hamstring curls, gluteal squeezes, and ankle pumps for 10 reps x 2 sets with constant verbal and occasional tactile cuing to help decrease trick movements and fall risks. Patient participated with log rolling bed mobility and sit to stand push off transfers (1 to 2 attempts) with occasional tactile and verbal cuing to help decrease fall risks.
[2021-08-18 11:37] VITALS: BP 154/68
--- NOTE | 2021-08-18 13:45 | NUR ---
PT LYING IN BED ASLEEP, PRONE POSITION. OYSTER WASHER, IS REINFORCEMENT, INHAILER TEACH AND TRAIN USE/SE/INDICATION. NO COMPLAINTS/DISTRESS AT THIS TIME. WILL MONITOR.
[2021-08-18 16:10] VITALS: BP 152/63
--- NOTE | 2021-08-18 18:45 | NUR ---
REPORT RECEIVED FROM aNpoleon RIVERA RN
[2021-08-18 18:54] VITALS: BP 125/74
--- NOTE | 2021-08-18 20:38 | NUR ---
PATIENT RESTING COMFORTABLY.NORMAL HEART SOUNDS SB ON TELE, DIMINSHIED LUNG SOUNDS THROUGHT BASES, PT 4L HF READING 96-97%, PT PRONING AT THIS TIME ACTIVE BOWEL SOUNDS LAST BM 08/17, DENIES ANY ISSUES. #22 IN THE LAC SALINE LOCK PLAN OF CARE REVIEWED, CALL LIGHT AND BEDSIDE TABLE WITHIN REACH
--- NOTE | 2021-08-18 23:30 | NUR ---
PT DESAT INTO 75% FOLLOWING INCIDENT WITH HF CANNULA, PT ACCIDENTALLY PULLED OUT OF WALL. PT PRONING READING 89-90% ON 4L HF, DE SATS TO 87 WHEN COUGHING. O2 DELIVERY NOW AT 5L PT SAT 93%
[2021-08-19] VITALS (7 sets, daily range): BP systolic 126–185; BP diastolic 64–77
--- NOTE | 2021-08-19 03:40 | NUR ---
VERBAL TELEPHONE ORDER OBTAINED FOR HYDRALIZINE R/T ELEVATED BLOOD PRESSURE OF 185/77
[2021-08-19 05:31] LABS: HEMATOCRIT 36.4 % (37.0-47.0); HEMOGLOBIN 11.8 g/dl (12.0-16.0); IMMATURE GRANULOCYTES 3.3 % (0.0-5.0); MEAN CORPUSCULAR HGB 30.8 pG CALC (26.0-32.0); MEAN CORPUSCULAR HGB CONC 32.4 g/dL CAL (32.0-36.0); NEUT# 4.86 thou/uL (2.00-7.15); RED BLOOD COUNT 3.83 mill/uL (4.20-5.60)
[2021-08-19 05:55] LABS: ALKALINE PHOSPHATASE 86 u/l (38-126); ANION GAP 11 (6-22 (CALC)); BILIRUBIN, TOTAL 0.7 mg/dL (0.0-1.4); BUN 20 mg/dL (8-23); BUN/CREATININE RATIO 35 (12-20 (CALC)); C-REACTIVE PROTEIN 3.3 mg/dL (0-0.9); CARBON DIOXIDE 29 mmol/l (22-30); CHLORIDE 101 mmol/l (95-108); CREATININE 0.6 mg/dL (0.5-1.0); GFR > 60 ML/MIN (>=60 (CALC)); GFR FOR AFR.AMER. > 60 ML/MIN (>=60 (CALC)); POTASSIUM 3.9 mmol/l (3.5-5.1); SGOT/AST 46 u/l (9-36); SODIUM 137 mmol/l (137-146); TOTAL PROTEIN 6.2 g/dL (6.3-8.2)
--- NOTE | 2021-08-19 09:48 | NUR ---
ASSESSMENT DONE. PATIENT IS ALERT AND ORIENT X3. PATIENT DENIES PAIN AT THIS TIME. PATIENT STATED SHE FEELS SOB. LUNGS SOUND DIMINISHED . O2 AT 5L HFNC AND O2 READING 97%. TELE IN PLACE. PATIENT DENIES NEEDS AT THIS TIME. SAFETY PRECAUTIONS REINFORCES AND CALL LIGHT IN REACH.
--- NOTE | 2021-08-19 12:30 | NUR ---
PATIENT IS SITTTING IN THE SIDE OF THE BED. O2 AT 5L HFNC AND READING 92%. PATIENT DENIES NEEDS AT THIS TIME. CALL LIGHT IN REACH.
--- NOTE | 2021-08-19 15:01 | NUR ---
Patient participated with PT intervention today. Patient did B LE AROM exercises in seated position: hip flexion, hip adduction, hip abduction, hamstring curls, knee extension, gluteal squeezes, and ankle pumps for 10 reps x 2 sets with occasional verbal and tactile cuing. Patient also participated im carrying out log rolling bed mobility and sit to stand push off transfers (1 to 3 reps) with occasional verbal and tactile cuing to help decrease trick movements and fall risks.
--- NOTE | 2021-08-19 16:03 | NUR ---
PATIENT IS SITTING IN THE BSC AND USING HER CELL PHONE WITH NO DISTRESS NOTED. PATIENT DENIES NEEEDS. CALL LIGHT IN REACH.
--- NOTE | 2021-08-19 19:00 | NUR ---
REPORT RECEIVED FROM Soniya BOYD RN
--- NOTE | 2021-08-19 21:31 | NUR ---
ALERT AND ORIENTED X 3, VS AND ASSEMENT COMPLETED. DIMMINISHED SOUNDS THROUGHOUT BASES, PT ON 3L 94% NORMAL HEART SOUNDS, LAST TELE READING SR 70. NON PRODUCTIVE COUGH. PT COMPLAINS OF COUGH. ACTIVE BOWEL SOUNDS THROUGHOUT ALL QUADRANTS, LAST REPORTED BOWEL MOVEMENT 08/19. #22 LFA SL, FLUSHED AND PATENT. PLAN OF CARE REVIEWED, CALL LIGHT AND BEDSIDE TABLE WITHIN REACH.
[2021-08-20 00:35] VITALS: BP 162/75
--- NOTE | 2021-08-20 05:30 | NUR ---
PATIENT RESTING COMFORTABLY, DENIES ANY NEEDS AT THIS TIME, CALL LIGHT AND BEDSIDE TABLE WITHIN REACH.
[2021-08-20 06:15] LABS: HEMATOCRIT 36.8 % (37.0-47.0); HEMOGLOBIN 11.8 g/dl (12.0-16.0); IMMATURE GRANULOCYTES 3.1 % (0.0-5.0); MEAN CELL VOLUME 95.6 fL CALC (80.0-100.0); MEAN CORPUSCULAR HGB 30.6 pG CALC (26.0-32.0); MEAN CORPUSCULAR HGB CONC 32.1 g/dL CAL (32.0-36.0); NEUT# 5.07 thou/uL (2.00-7.15); RED BLOOD COUNT 3.85 mill/uL (4.20-5.60); RED CELL DISTRI WIDTH 13.1 % (11.5-15.5)
[2021-08-20 06:40] LABS: ALKALINE PHOSPHATASE 96 u/l (38-126); ANION GAP 11 (6-22 (CALC)); BILIRUBIN, TOTAL 0.7 mg/dL (0.0-1.4); BUN 24 mg/dL (8-23); BUN/CREATININE RATIO 36 (12-20 (CALC)); CARBON DIOXIDE 28 mmol/l (22-30); CHLORIDE 101 mmol/l (95-108); CREATININE 0.7 mg/dL (0.5-1.0); GFR > 60 ML/MIN (>=60 (CALC)); GFR FOR AFR.AMER. > 60 ML/MIN (>=60 (CALC)); POTASSIUM 3.8 mmol/l (3.5-5.1); SGOT/AST 52 u/l (9-36); SODIUM 136 mmol/l (137-146); TOTAL PROTEIN 6.1 g/dL (6.3-8.2)
[2021-08-20 08:52] VITALS: BP 124/60
--- NOTE | 2021-08-20 08:52 | NUR ---
PATIENT IS RESTING IN BED. ASSESSMENT DONE. TELE IN PLACE. PATIENT IS ALERT AND OREINT X3. PATIENT DENIES PAIN OR SOB AT THIS TIME. O2 AT 3L HFNC AND O2 READING 94%. PATIENT DENIES NEEDS AT THIS TIME. CALL LIGHT NI REACH.
[2021-08-20 11:26] VITALS: BP 116/66
--- NOTE | 2021-08-20 11:50 | NUR ---
PATIENT IS USING THE BSC AND VOID. O2 90% VIA 3L HFNC. PATIENT DENIES NEEDS ANY OTHER NEEDS AT THIS TIME. CALL LIGHT IN REACH.
--- NOTE | 2021-08-20 15:45 | NUR ---
22 LFA SITE LEAKING WHEN FLUSH. IV REMOVED. NEW IV STARTED 22 RAC AND FLUSH WELL. PATIENT DENIES ANY OTHER NEEDS AT THIS TIME. CALL LIGHT IN REACH.
[2021-08-20 16:37] VITALS: BP 169/68
--- NOTE | 2021-08-20 18:55 | NUR ---
REPORT RECEIVED FROM Soniya BOYD RN
--- NOTE | 2021-08-20 20:15 | NUR ---
LERT AND ORIENTED X 3, VS AND ASSEMENT COMPLETED. DIMMINISHED SOUNDS THROUGHOUT BASES, PT ON 3L 87%, INCREASED OZ TO 5L AND NOW 90-91%NORMAL HEART SOUNDS, LAST TELE READING SB56 NON PRODUCTIVE COUGH. PT COMPLAINS OF COUGH. ACTIVE BOWEL SOUNDS THROUGH ALL QUADRANTS, LAST REPORTED BOWEL MOVEMENT 08/19. #22 RAC SL, FLUSHED AND ATENT. PLAN OF CARE REVIEWED, CALL LIGHT AND BEDSIDE TABLE WITHIN REACH.
[2021-08-20 20:54] VITALS: BP 157/65
--- NOTE | 2021-08-21 00:15 | NUR ---
PT RESTING COMOFRTABLY IN THE PRONE POSITION, DENIES ANY CURRENT NEEDS. CALL LIGHT AND BEDSIDE TABLE WTIHN REACH.
[2021-08-21 01:21] VITALS: BP 146/67
[2021-08-21 04:41] VITALS: BP 131/57
--- NOTE | 2021-08-21 05:12 | NUR ---
PT LAYING PRONE AT THIS TIME, AWAKE RESTING, STATES SHE FEELS BETTER THIS MORNING. DENIES ANY NEEDS OR COMPLAINTS. BEDSIDE TABLE AND CALL LIGHT WITHIN REACH.
[2021-08-21 05:27] LABS: HEMATOCRIT 40.7 % (37.0-47.0); HEMOGLOBIN 12.8 g/dl (12.0-16.0); IMMATURE GRANULOCYTES 1.9 % (0.0-5.0); MEAN CELL VOLUME 96.7 fL CALC (80.0-100.0); MEAN CORPUSCULAR HGB 30.4 pG CALC (26.0-32.0); MEAN CORPUSCULAR HGB CONC 31.4 g/dL CAL (32.0-36.0); NEUT# 8.38 thou/uL (2.00-7.15); RED BLOOD COUNT 4.21 mill/uL (4.20-5.60); RED CELL DISTRI WIDTH 13.2 % (11.5-15.5)
[2021-08-21 05:57] LABS: ALBUMIN 3.5 g/dL (3.2-5.0); ALKALINE PHOSPHATASE 104 u/l (38-126); ANION GAP 13 (6-22 (CALC)); BILIRUBIN, TOTAL 0.9 mg/dL (0.0-1.4); BUN 21 mg/dL (8-23); BUN/CREATININE RATIO 32 (12-20 (CALC)); C-REACTIVE PROTEIN 2.5 mg/dL (0-0.9); CARBON DIOXIDE 28 mmol/l (22-30); CHLORIDE 102 mmol/l (95-108); CREATININE 0.7 mg/dL (0.5-1.0); GFR > 60 ML/MIN (>=60 (CALC)); GFR FOR AFR.AMER. > 60 ML/MIN (>=60 (CALC)); POTASSIUM 4.4 mmol/l (3.5-5.1); SGOT/AST 61 u/l (9-36); SODIUM 138 mmol/l (137-146); TOTAL PROTEIN 6.9 g/dL (6.3-8.2)
[2021-08-21 07:34] VITALS: BP 126/58
--- NOTE | 2021-08-21 10:14 | NUR ---
Patient participated with PT intervention today. Patient did seated B LE AROM exercises today: hip flexion, hip adduction, hip abduction, hamstring curls, knee extension, gluteal squeezes, and ankle pumps for 2 x 10 reps with occasional verbal and tactile cuing. Patient did log rolling bed mobility and sit to stand push off transfers (1 to 2 reps) with verbal and tactile cuing to help decrease fall risks.
[2021-08-21 11:44] VITALS: BP 117/60
[2021-08-21] MEDS ORDERED: HUMALOG100 MG/ML SC (14:01)
[2021-08-21] MEDS ORDERED: ALBUTEROL108 MCG/AC IN (14:01)
[2021-08-21] MEDS ORDERED: ASPIRIN REGULA325 M1 PO (14:08)
[2021-08-21 16:34] VITALS: BP 136/64
[2021-08-21 19:00] VITALS: BP 107/53
--- NOTE | 2021-08-21 20:30 | NUR ---
POINT OF CARE GLUCOSE 324mg/dl.
--- NOTE | 2021-08-21 20:44 | NUR ---
SPOKE WITH BEN AT [facility], CURRENT ETA FOR LOAD BUILDER IS 2200.
--- NOTE | 2021-08-21 21:45 | NUR ---
CALL RECEIVED FROM BEN AT [facility], [facility] [id number].
--- NOTE | 2021-08-21 22:37 | NUR ---
[facility] TRANSPORT HERE TO CONSUMER AFFAIRS DIRECTOR PATIENT AT THIS TIME.
== END 2021-08-21 22:45 | DRG 177 ==
LOC: ED 08:09 → ED-I 08:58 → ED 08:58 → ED-I 11:27 → ED 11:57 → MS2 11:58
PROVIDERS: Family Medicine; Nurse Practitioner; Nurse Practitioner Family; ADMIT Hospitalist; ATTEND Internal Medicine
PROC: XW033E5 Introduction of Remdesivir Anti-infective into Peripheral Vein, Percutaneous Approach, New Technology Group 5 (ICD-10-PCS; principal; 2021-08-11)
DX: U07.1 COVID-19 (principal); J12.82 Pneumonia due to coronavirus disease 2019; J96.01 Acute respiratory failure with hypoxia; E87.2 Acidosis; I10 Essential (primary) hypertension; E11.65 Type 2 diabetes mellitus with hyperglycemia; E78.5 Hyperlipidemia, unspecified; K21.9 Gastro-esophageal reflux disease without esophagitis; F32.9 Major depressive disorder, single episode, unspecified; G47.30 Sleep apnea, unspecified; H91.90 Unspecified hearing loss, unspecified ear; T38.0X5A Adverse effect of glucocorticoids and synthetic analogues, initial encounter; Z79.84 Long term (current) use of oral hypoglycemic drugs
CPT/HCPCS: J1650; Q9967